=== PATIENT | female | born 1980 | race Caucasian/White ===

== ENCOUNTER 2021-09-11 09:02 | Emergency (ER) | payer BC, SELFPAY ==
[2021-09-11 09:13] VITALS: BP 117/85; PULSE 91; RESP 16; TEMP 36.6; O2SAT 98
--- NOTE | 2021-09-11 09:25 | ED.URI ---
HPI - URI/Sore Throat General Chief Complaint: Upper Respiratory Infection Stated Complaint: sore throat cough Time Seen by Provider: 09/11/21 09:26 Source: patient and RN notes reviewed Mode of arrival: ambulatory Limitations: no limitations History of Present Illness HPI Narrative: 40-year-old female presented for complaint of sinus pressure congestion, sore throat, headache, onset today. Denies nausea, vomiting, shortness of breath, cough, fevers or chills. She is not boosted for COVID or vaccinated for flu. She denies sick contacts. She has not taken anything for symptoms. MD elicited complaint: cough Related Data Home Medications Medication Instructions Recorded Confirmed norethindrone (contraceptive) 0.35 1 tablet PO DAILY 09/11/21 09/11/21 mg tablet Allergies Allergy/AdvReac Type Severity Reaction Status Date / Time No Known Allergies Allergy Verified 09/11/21 09:54 Review of Systems Review of Systems: CONSTITUTIONAL: Denies malaise, chills, sweats, fever EYES: Denies visual changes, redness, or discharge ENT: Reports rhinorrhea, congestion, sinus pain, sore throat CARDIOVASCULAR: Denies chest pain, palpitations, edema RESPIRATORY: Denies dyspnea GASTROINTESTINAL: Denies abdominal pain, nausea, vomiting, diarrhea NEUROLOGIC: Reports headache PMFSH Family History Family History Father Family history of gout Family history of diabetes mellitus in first degree relative Family history of pancreatic disease Sibling Family history of gastrointestinal disorder Other Diabetes mellitus Family history of cardiovascular disease Social History Social History Smoking end date: 04/04/04 Alcohol intake: current Exam Narrative: GENERAL: Ill-appearing, nontoxic EYES: conjunctivae clear ENT: Mucous membranes moist. TM pearly justin with dull light reflex bilaterally; no tragal tenderness. Oropharynx erythematous, tonsils 3+ with white streaking right tonsil, no drooling, no hoarseness, no trismus, uvula midline. Hoarse voice. No tripod positioning, muffled voice, soft palate or pharyngeal wall bulging NECK: Supple. No lymphadenopathy CHEST: Clear to auscultation, breath sounds equal. No respiratory distress, speaks in full sentences. HEART: Regular rate and rhythm. No murmur heard. Course Course Emergency Course: Patient is aware of diagnosis, understands and agrees to treatment plan. Anticipatory guidance given. Patient agrees to follow-up as directed and is aware of reasons to seek care at the emergency department. Portions of this record may have been created with voice recognition software Level of Care: Express Care Visit Vital Signs Vital signs: Vital Signs Temperature 97.8 F 09/11/21 09:13 Pulse Rate 91 09/11/21 09:13 Respiratory Rate 16 09/11/21 09:13 Blood Pressure 117/85 09/11/21 09:13 Pulse Oximetry 98 09/11/21 09:13 Oxygen Delivery Room Air 09/11/21 09:13 Temperature 97.8 F 09/11/21 09:13 Pulse Rate 91 09/11/21 09:13 Respiratory Rate 16 09/11/21 09:13 Blood Pressure 117/85 09/11/21 09:13 Pulse Oximetry 98 09/11/21 09:13 Oxygen Delivery Room Air 09/11/21 09:13 reviewed MDM - URI/Sore Throat MDM Narrative Medical decision making narrative: strep covid flu negative, reviewed with patient. Steroid prescribed. She is advised on supportive treatments and close follow-up. She is advised on signs and symptoms to go to the ER. Verbalized understanding. She is in stable condition and appropriate for outpatient treatment and follow-up Differential Diagnosis Differential diagnosis: Likely upper respiratory infection, sinusitis and viral infection Lab Data Labs: Influenza A Screen Negative Reference Range: Negative Influenza B Screen Negativ
== END 2021-09-11 10:00 | disposition home or self-care (01) ==
PROVIDERS: Emergency Provider Nurse Practitioner Family
DX: J03.90 Acute tonsillitis, unspecified (principal); Z20.822 Contact with and (suspected) exposure to COVID-19
CPT/HCPCS: 87081; 87426; 87804; 87880; 99213; C9803; G0463

== ENCOUNTER 2024-03-15 10:47 | Emergency (ER) | payer OTHER, SELFPAY ==
[2024-03-15 11:01] VITALS: BP 125/60; PULSE 88; RESP 15; TEMP 37.1; O2SAT 99
--- NOTE | 2024-03-15 12:03 | ED.URI ---
HPI - URI/Sore Throat General Chief Complaint: Upper Respiratory Infection Stated Complaint: Cough/Chills/Fever/Shortness of Breath Time Seen by Provider: 03/15/24 12:00 Source: patient, RN notes reviewed and old records reviewed Mode of arrival: ambulatory Limitations: no limitations History of Present Illness HPI Narrative: 43year old female presents to [facility] with complaints of cough with some congestion,, fevers, chills and some shortness of breath reported for the past 3 days. Patient reports that she has been taking Tylenol and also Mucinex for her symptoms. Patient has even nonlabored respirations, with no tachypnea or retractions, SAO2 99% on room air. Patient reports that son diagnosed with pneumonia yesterday. MD elicited complaint: fever, cough and other (chills and shortness of breath) Onset (ago): day(s) (3) Severity: moderate Able to tolerate fluids by mouth: Yes Treatments prior to arrival: acetaminophen and other (Mucinex) Related Data Home Medications ?Medication ?Instructions ?Recorded ?Confirmed ?Last Taken ?Type norethindrone (contraceptive) 0.35 1 tablet PO DAILY 09/11/21 09/11/21 Unknown History mg tablet Allergies Allergy/AdvReac Type Severity Reaction Status Date / Time No Known Allergies Allergy Verified 03/15/24 10:59 Review of Systems Review of Systems: CONSTITUTIONAL: Reports malaise, chills, sweats, or fever. EYES: Denies visual changes, redness, or discharge. ENT: Reports rhinorrhea, congestion,no sinus pain,no otalgia and no sore throat. CARDIOVASCULAR: Denies chest pain, palpitations, or edema. RESPIRATORY: Reports cough.? Reports some dyspnea. GASTROINTESTINAL: Denies abdominal pain, nausea, vomiting, diarrhea SKIN: Denies rash or itching. MUSCULOSKELETAL: Denies myalgia. NEUROLOGIC: Denies headache. All systems reviewed & are unremarkable except as noted in HPI and below PMFSH Past Medical History Medical History Asthma Environmental allergies Surgical History Surgical History Previous section Family History Family History Father Family history of gout Family history of diabetes mellitus in first degree relative Family history of pancreatic disease Sibling Family history of gastrointestinal disorder Other Diabetes mellitus Family history of cardiovascular disease Social History Social History Smoking status: Current every day smoker Tobacco type: cigarettes Alcohol intake: current Substance use type: does not use Living arrangements: with family Gender identity (if verbalized by the patient): Female Comments At time of signature, agree with nursing past medical, surgical, social and family history. There is no relevant family history pertinent to the presenting complaint Exam Narrative: GENERAL: Well-appearing, well-nourished, and in no acute distress. HEAD: Normocephalic EYES: PERRLA, conjunctivae clear ENT: Nares clear, turbinates edematous and erythematous, clear discharge. Mucous membranes moist. TM pearly justin with dull light reflex bilaterally; no tragal tenderness. Oropharynx erythematous without lesions. Tonsils enlarged and without exudate, no drooling, no hoarseness, no trismus, uvula midline.post nasal drainage NECK: Supple. No lymphadenopathy CHEST: Scattered wheezing on auscultation, breath sounds equal. positive for wheezing, no rhonchi, rales, or stridor. No respiratory distress, speaks in full sentences.SAO2 99% on room air cough noted no retractions or tachypnea. HEART: Regular rate and rhythm. No murmur heard. SKIN: Warm, dry, no rash. NEURO: Alert and oriented x3. PSYCH: Normal mood and affect Course Course Emergency Course: Patient is aware of diagnosis, understands and agrees to treatment plan.? Anticipatory guidance given.? Patient agrees to follow-up as directed and is aware of reasons to seek care at the emergency department. Portions of this record may have been created with voice recognition software Level of Care: Express Care Visit Vital Signs Vital signs: Vital Signs Temperature 37.1 C 03/15/24 11:01 Pulse Rate 88 03/15/24 11:01 Respiratory Rate 15 03/15/24 11:01 Blood Pressure 125/60 03/15/24 11:01 Pulse Oximetry 99 03/15/24 11:01 Oxygen Delivery Room Air 03/15/24 11:01 Temperature 37.1 C 03/15/24 11:01 Pulse Rate 88 03/15/24 11:01 Respiratory Rate 15 03/15/24 11:01 Blood Pressure 125/60 03/15/24 11:01 Pulse Oximetry 99 03/15/24 11:01 Oxygen Delivery Room Air 03/15/24 11:01 Reviewed MDM - URI/Sore Throat MDM Narrative Medical decision making narrative: Differential diagnosis considered: Trevino virus, strep pharyngitis, allergic rhinitis, upper respiratory tract infection, sinusitis, rhinosinusitis, nasopharyngitis. viral pharyngitis, otitis media, otitis externa, pneumonia, bronchitis, viral cough syndrome, viral syndrome, and influenza.? Exam findings show no acute concerns or changes; patient is non-toxic appearing and is in no distress.? Patient is appropriate for outpatient treatment and follow-up. Differential Diagnosis Differential diagnosis: Likely upper respiratory infection, viral infection, bronchitis, influenza and other (COVID) Medical Records Attestation: I reviewed the patient's medical records. Lab Data Attestation: I reviewed the patient's lab results. Lab results narrative: influenza A negative, Influenza B negative, COVID antigen negative Labs: Lab Results 03/15/24 Range/Units 19:10 POC Influenza A Ag Negative (Negative) POC Influenza B Ag Negative (Negative) POC SARS CoV-2 Ag Negative (Negative) Critical Care Time Critical Care Time Critical Care Time: No Discharge Plan Discharge Clinical Impression: Bronchitis Patient Disposition: Home, Self-Care Condition: Stable Instructions: Antibiotic Form, Chronic Bronchitis (ED) Additional Instructions: Increase fluids especially juices and water [id number] cough and cold medicine of your choice for your symptoms Tylenol or Ibuprofen for any fever or pain Continue your inhaler/nebulizer as directed Steroids as directed--take with food heat to the face 20-30 minutes 4-6 times a day for pain Salt water gargles, throat lozenges or throat sprays as desired Antibiotic as directed--finished the medication If your symptoms persist, change or worsen significantly before you can contact your personal physician then please, without delay, go to the emergency department for further evaluation. Follow-up with PCP in 7-10 days or sooner if needed Patient Language: Dutch Prescriptions: New azithromycin 250 mg tablet See Rx Instructions .ROUTE .COMPLEX Qty: 6 0RF Rx Instructions: For 250 mg dose pack: take 500 mg today (day 1), then 250 mg for 4 days (days 2-5) prednisone 20 mg tablet 20 mg PO BID Qty: 10 0RF albuterol sulfate 90 mcg/actuation HFA aerosol inhaler 2 puff inhalation QID Qty: 6.7 0RF No Action methylprednisolone [Medrol (Ketan)] 4 mg tablets,dose pack See Rx Instructions .ROUTE .COMPLEX Qty: 21 0RF Rx Instructions: orally per package directions norethindrone (contraceptive) 0.35 mg tablet 1 tablet PO DAILY Follow-up/Referrals: PHYSICIAN,TIME STUDY TECHNOLOGIST [Primary Care Provider] - Stand Alone Forms: Work/School Release IP Time of Disposition: 12:29 Quality [place] Coma Scale Eyes: Open Verbal: Oriented and Alert Motor: Follows Commands Vivian Coma Total Score: 15
[2024-03-15 19:12] LABS: EDCOVIDSCREEN Negative (Negative); EDINFLUASCREEN Negative (Negative); EDINFLUBSCREEN Negative (Negative)
== END 2024-03-15 12:33 | disposition home or self-care (01) ==
PROVIDERS: Emergency Provider Registered Nurse
DX: J40 Bronchitis, not specified as acute or chronic (principal); Z20.822 Contact with and (suspected) exposure to COVID-19; F17.210 Nicotine dependence, cigarettes, uncomplicated; J45.909 Unspecified asthma, uncomplicated
CPT/HCPCS: 87426; 87804; 99213; G0463